=== PATIENT | male | born 1965 | race African-American/Black ===

== ENCOUNTER 2017-02-01 15:26 | Emergency (ER) | payer OTHER ==
[~2017-02-01] VITALS: Ht 177.8 cm; Wt 85.7 kg
[~2017-02-01 15:26] MED LIST: RISP4TAB4 PO; SERT100T PO
--- NOTE | 2017-02-01 16:09 | NUR ---
PT C/O DEPRESSION AND SUICIDAL IDEATION. REQUESTING PSYCH PLACEMENT AWAITING MD ORDER FOR EVAL
--- NOTE | 2017-02-01 16:27 | NUR ---
URINE SAMPLE COLLECTED SENT TO LAB
--- NOTE | 2017-02-01 16:32 | NUR ---
KELIN SORIANO AT BEDSIDE FOR EVAL
[2017-02-01 16:39] LABS: BASOPHILS % (AUTO) 0.5 % (0.0-2.0); EOSINOPHILS # (AUTO) 0.1 /CMM (0.0-0.7); EOSINOPHILS % (AUTO) 1.4 % (0.0-6.0); HEMATOCRIT 44 % (39-51); LYMPHOCYTES # (AUTO) 1.7 /CMM (0.8-4.8); LYMPHOCYTES % (AUTO) 19.2 % (20.0-44.0); MEAN CORPUSCULAR HEMOGLOBIN 29 PG (26.0-33.0); MEAN CORPUSCULAR HGB CONC 34 g/dl (31.0-36.0); MEAN CORPUSCULAR VOLUME 85 fL (80-96); MONOCYTES # (AUTO) 0.8 /CMM (0.1-1.30); MONOCYTES % (AUTO) 9.5 % (2.0-12.0); NEUTROPHILS # (AUTO) 6.1 /CMM (1.8-8.9); NEUTROPHILS % (AUTO) 69.4 % (43.0-81.0); PLATELET COUNT (AUTO) 160 /CMM (150-450); RDW COEFFICIENT OF VARIATION 13.7 (11.5-15.0); RED BLOOD CELL COUNT(AUTO) 5.21 MIL/uL (4.5-6.0); WHITE BLOOD COUNT (AUTO) 8.7 K/uL (4.3-11.0)
[2017-02-01 16:42] LABS: APPEARANCE,URINE CLEAR (CLEAR); BILIRUBIN,URINE NEGATIVE (NEGATIVE); BLOOD, URINE TRACE Ery/uL (NEGATIVE); COLOR,URINE YELLOW (YELLOW); KETONES,URINE NEGATIVE (NEGATIVE); LEUKOCYTE ESTERASE ,URINE NEGATIVE (NEGATIVE); NITRITE, URINE NEGATIVE (NEGATIVE); PROTEIN,URINE NEGATIVE (NEGATIVE); UGLUCOSE TRACE mg/dL (NEGATIVE); UROBILINOGEN,URINE 0.2 EU/dL (0.2)
[2017-02-01 16:52] LABS: CALCIUM, SERUM 8.8 mg/dL (8.5-10.1); CARBON DIOXIDE 28 mmol/L (21-32); CHLORIDE 107 mmol/L (98-107); CREATININE 1.1 mg/dL (0.6-1.3); GLUCOSE 72 mg/dL (74-106); POTASSIUM 3.9 mmol/L (3.5-5.1); SODIUM SERUM 142 mmol/L (136-145); UREA NITROGEN, BLOOD 21 mg/dL (7-18)
[2017-02-01 16:55] LABS: BACTERIA,URINE None seen /HPF (None Seen); SQUAMOUS EPITHELIAL CELL,UR Rare /HPF (None Seen)
[2017-02-01 16:59] LABS: ALANINE AMINOTRANSFERASE 28 U/L (12-78); ALBUMIN 3.5 g/dL (3.4-5.0); ALKALINE PHOSPHATASE 76 U/L (46-116); ASPARTATE AMINOTRANSFERASE 16 U/L (15-37); BILIRUBIN,DIRECT 0.1 mg/dL (0.0-0.2); BILIRUBIN,TOTAL 0.3 mg/dL (0.2-1.0); TOTAL PROTEIN, SERUM 7.4 g/dL (6.4-8.2)
--- NOTE | 2017-02-01 17:00 | NUR ---
DRU PSYCH EVAL AT BEDSIDE
[2017-02-01 17:10] LABS: ACETAMINOPHEN < 10 ug/ml (10-30); ALCOHOL, BLOOD < 3 mg/dL (0-0); SALICYLATE 2.1 mg/dL (2.8-20.0)
[2017-02-01] MEDS ORDERED: IBUPROFEN 600 MG TABLET PO ONE (17:33)
[2017-02-01] MEDS: IBUPROFEN 600 MG TABLET PO ONE (17:42)
--- NOTE | 2017-02-01 19:49 | NUR ---
CALLED [facility] TO FOLLOW UP WITH PLACEMENT OF PT, SPOKE WITH LIBERTY, SAID SHE IS HAVING THE NURSES REVIEW THE PACKET AND SHE WILL GET BACK TO ME.
--- NOTE | 2017-02-01 20:25 | NUR ---
CALLED [facility] INTAKE TO FOLLOW UP WITH PT, PHONE KEPT RINGING, NO ANSWER
--- NOTE | 2017-02-01 20:38 | NUR ---
CALLED [facility] INTAKE TO FOLLOW UP WITH PT, PHONE KEPT RINGING, NO ANSWER
--- NOTE | 2017-02-01 20:55 | NUR ---
CALLED [facility] INTAKE TO FOLLOW UP WITH PT, PHONE KEPT RINGING, NO ANSWER
--- NOTE | 2017-02-01 21:08 | NUR ---
RECIEVED CALL FROM [facility] PT IS ACCEPTED BY , PLEASE GIVE NURSE TO NURSE REPORT TO [phone]
--- NOTE | 2017-02-01 21:16 | NUR ---
CALLED [facility] FOR TRANSPORT TO [facility], ETA 15 MIN
--- NOTE | 2017-02-01 21:34 | NUR ---
GAVE REPORT TO JB [facility] . TRANSFER PT TO [facility] VIA AMBULANCE
[2017-02-01 21:36] VITALS: BP 155/97
== END 2017-02-01 21:45 ==
LOC: ER 15:28
DX: F32.9 Major depressive disorder, single episode, unspecified (principal); F20.9 Schizophrenia, unspecified; F14.10 Cocaine abuse, uncomplicated; Z59.0 Homelessness; F17.200 Nicotine dependence, unspecified, uncomplicated; G89.29 Other chronic pain
CPT/HCPCS: 36415; 80048; 80076; 80305; 80329; 81001; 85025; 99285; A4606; G0480 ×2; Z7610; 81000-TC

== ENCOUNTER 2019-11-10 14:00 | Emergency (ER) | payer MEDICAID, OTHER ==
[~2019-11-10] VITALS: Ht 175.3 cm; Wt 104.3 kg
[2019-11-10 14:17] VITALS: BP 119/66
--- NOTE | 2019-11-10 14:17 | NUR ---
PT AMBULATORY TO ED 15 C/O DEPRESSION FOR THE PAST 4 DAYS. STATES WENT TO [facility] FOR VOLUNTARY PSYCH ADMIT BUT WAS TOLD TO BE MEDICALLY CLEARED FIRTST. 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 PT IS COOPERATIVE TO STAFF. GOWNED AND BELONGINGS COLLECTED AND TAKEN TO [employer]E [employer]OCKER. SITTER AT BEDSIDE. AWAITING MD FARRIS.
--- NOTE | 2019-11-10 15:08 | NUR ---
DR SHAH AT BEDSIDE FOR EVAL.
--- NOTE | 2019-11-10 15:15 | NUR ---
DOG BREEDER AT BEDSIDE FOR BLOOD DRAW.
[2019-11-10 15:21] LABS: BASOPHILS % (AUTO) 0.7 % (0.0-2.0); EOSINOPHILS % (AUTO) 1.5 % (0.0-6.0); HEMATOCRIT 46 % (39-51); LYMPHOCYTES # (AUTO) 1.4 /CMM (0.8-4.8); LYMPHOCYTES % (AUTO) 21.6 % (20.0-44.0); MEAN CORPUSCULAR HGB CONC 32 g/dl (31.0-36.0); MEAN CORPUSCULAR VOLUME 87 fL (80-96); MONOCYTES # (AUTO) 0.8 /CMM (0.1-1.30); MONOCYTES % (AUTO) 11.3 % (2.0-12.0); NEUTROPHILS # (AUTO) 4.3 /CMM (1.8-8.9); NEUTROPHILS % (AUTO) 64.9 % (43.0-81.0); PLATELET COUNT (AUTO) 191 /CMM (150-450); WHITE BLOOD COUNT (AUTO) 6.7 K/uL (4.3-11.0)
[2019-11-10 15:30] LABS: CALCIUM, SERUM 8.7 mg/dL (8.5-10.1); CARBON DIOXIDE 29 mmol/L (21-32); CHLORIDE 106 mmol/L (98-107); GLUCOSE 141 mg/dL (74-106); POTASSIUM 4.3 mmol/L (3.5-5.1); SODIUM SERUM 143 mmol/L (136-145); UREA NITROGEN, BLOOD 13 mg/dL (7-18)
[2019-11-10 15:36] LABS: ALANINE AMINOTRANSFERASE 42 U/L (12-78); ALBUMIN 3.2 g/dL (3.4-5.0); ALCOHOL, BLOOD < 3 mg/dL (0-0); ALKALINE PHOSPHATASE 98 U/L (46-116); ASPARTATE AMINOTRANSFERASE 24 U/L (15-37); BILIRUBIN,TOTAL 0.3 mg/dL (0.2-1.0); SALICYLATE < 2.8 mg/dL (2.8-20.0)
[2019-11-10 15:52] LABS: APPEARANCE,URINE Clear (CLEAR); BILIRUBIN,URINE SMALL (NEGATIVE); BLOOD, URINE Negative Ery/uL (NEGATIVE); COLOR,URINE Yellow (YELLOW); KETONES,URINE Negative (NEGATIVE); LEUKOCYTE ESTERASE ,URINE Negative (NEGATIVE); NITRITE, URINE Negative (NEGATIVE); PH,URINE 5.5 (5.0-8.0); PROTEIN,URINE Negative (NEGATIVE); UGLUCOSE Negative (NEGATIVE); UROBILINOGEN,URINE 0.2 EU/dL (0.2)
--- NOTE | 2019-11-10 17:35 | NUR ---
FAXED FACESHEET AND CLINICALS TO [facility]
--- NOTE | 2019-11-10 18:05 | NUR ---
md [facility]ERY[facility], UNIT RN [phone] [facility]
--- NOTE | 2019-11-10 18:29 | NUR ---
REPORT GIVEN TO PRADEEP HOOKS. AWAITING TRANSPORT AMBULANCE.
--- NOTE | 2019-11-10 18:30 | NUR ---
CALLED [facility] FOR TRANSPORT REF#[id number], AWAITING CALL BACK WITH THALIA
--- NOTE | 2019-11-10 20:15 | NUR ---
USHA AT BEDSIDE FOR TRANSPORT TO [facility].
== END 2019-11-10 20:15 ==
LOC: ER 14:10
DX: R45.851 Suicidal ideations (principal); F32.9 Major depressive disorder, single episode, unspecified; F15.10 Other stimulant abuse, uncomplicated; G89.29 Other chronic pain; F20.9 Schizophrenia, unspecified; Z59.0 Homelessness
CPT/HCPCS: 36415; 80048; 80076; 80305; 80307; 80329; 81001; 85025; 99285; G0480; 81000-TC